=== PATIENT | male | born 1980 | race Caucasian/White ===

== ENCOUNTER 2023-11-23 19:17 | Emergency (ER) | payer OTHER ==
[2023-11-23 20:00] LABS: BASOPHILS ABSOLUTE AUTO 0.05 K/uL (0.00-0.20); BASOPHILS PERCENT AUTO 0.5 % (0.0-1.0); EOSINOPHILS ABSOLUTE AUTO 0.08 K/uL (0.00-0.45); EOSINOPHILS PERCENT AUTO 0.8 % (0.0-6.0); HEMATOCRIT 47.8 % (42.0-52.0); HEMOGLOBIN 17.1 g/dL (14.0-18.0); IMMATURE GRAN ABSOLUTE AUTO 0.02 K/uL (0.00-0.05); IMMATURE GRAN PERCENT AUTO 0.2 % (0.0-0.4); LYMPHOCYTES PERCENT AUTO 26.8 % (24.0-44.0); MEAN CORPUSCULAR HEMOGLOBIN 32.2 pg (28.0-32.0); MEAN CORPUSCULAR HGB CONC 35.8 g/dL (32.0-36.0); MEAN PLATELET VOLUME 11.4 fL (9.4-12.4); MONOCYTES ABSOLUTE AUTO 0.61 K/uL (0.00-0.80); NEUTROPHILS ABSOLUTE AUTO 6.63 K/uL (1.80-7.70); NEUTROPHILS PERCENT AUTO 65.7 % (41.0-71.0); PLATELET COUNT,PLT 228 K/uL (150-400); RED BLOOD CELL COUNT 5.31 M/uL (4.52-5.90); WHITE BLOOD CELL COUNT,WBC 10.09 K/uL (3.9-11.3)
[2023-11-23] MEDS: Pantoprazole 40 MG in Sodium Chloride 0.9% 10 ML IVPUSH ONE (20:01)
[2023-11-23] MEDS: Ondansetron 4 MG/2 ML SDV IVPUSH ONE (20:01)
[2023-11-23] MEDS: Alum Hydro/Mag Hydro/Simeth XS 15 ML, Lidocaine 2% 5 ML PO ONE (20:01)
[2023-11-23] MEDS: Sodium Chloride 0.9% 1,000 ML IV ONE (20:01)
[2023-11-23 20:31] LABS: ALANINE AMINOTRANSFERASE,ALT 39 IU/L (14-63); ALBUMIN 3.8 g/dL (3.4-5.0); ALKALINE PHOSPHATASE 87 U/L (46-116); ASPARTATE AMNIOTRANSFERASE,AST 25 IU/L (15-37); BILIRUBIN TOTAL 0.3 mg/dL (0.2-1.0); BLOOD UREA NITROGEN,BUN 12 mg/dL (7.0-18.0); CALCIUM 9.4 mg/dL (8.5-10.1); CARBON DIOXIDE,CO2 27.1 mmol/L (21.0-32.0); CHLORIDE,CL 102 mmol/L (98-107); EST CRCL DRUG DOSING (CG) 102.49 mL/min; GLUCOSE RANDOM 97 mg/dL (74-106); LIPASE 51 U/L (16-77); MAGNESIUM 2.2 mg/dL (1.8-2.4); POTASSIUM,K 4.5 mmol/L (3.5-5.1); PROTEIN TOTAL,TP 7.6 g/dL (6.4-8.2); SODIUM,NA 140 mmol/L (136-148)
[2023-11-23 20:39] LABS: ESTIMATED GFR 96 mL/min (>60)
== END 2023-11-23 21:01 | disposition home or self-care (01) ==
LOC: MW.ED 19:17
DX: K29.70 Gastritis, unspecified, without bleeding (principal); Z79.899 Other long term (current) drug therapy; Z75.8 Other problems related to medical facilities and other health care
CPT/HCPCS: 36415; 71045; 80053; 83690; 83735; 84484; 85025; 93005; 96361; 96374; 96375; 99285; A9270; C9113; J2405; J3490; J7030; 93010; 99284

== ENCOUNTER 2024-01-26 09:26 | Day surgery (SDC) | payer OTHER ==
[2024-01-26] MEDS: Lactated Ringers 1,000 ML IV SCH (09:50)
[2024-01-26] MEDS ORDERED: Propofol 200 MG/20 ML SDV ONE (10:42)
[2024-01-26] MEDS ORDERED: Lidocaine 2% 5 ML SDV ONE (10:42)
[2024-01-26] MEDS ORDERED: Lactated Ringers 1,000 ML IV SCH (11:15)
== END 2024-01-26 11:40 | disposition home or self-care (01) ==
LOC: MW.SDS 09:26
PROVIDERS: ATTEND Surgery
DX: K29.50 Unspecified chronic gastritis without bleeding (principal); K21.00 Gastro-esophageal reflux disease with esophagitis, without bleeding; J45.909 Unspecified asthma, uncomplicated; F41.9 Anxiety disorder, unspecified; F17.210 Nicotine dependence, cigarettes, uncomplicated
CPT/HCPCS: 43239; J2704; J7120; 00731; J3490

== ENCOUNTER 2024-04-01 10:34 | Emergency (ER) | payer OTHER ==
[2024-04-01] MEDS: Acetaminophen/HYDROcodone 325-5 MG Tab PO ONE (11:16)
== END 2024-04-01 11:41 | disposition home or self-care (01) ==
LOC: MW.ED 10:34
DX: G89.29 Other chronic pain (principal); M54.50 Low back pain, unspecified; J45.909 Unspecified asthma, uncomplicated; F17.210 Nicotine dependence, cigarettes, uncomplicated; Z88.8 Allergy status to other drugs, medicaments and biological substances; Z79.899 Other long term (current) drug therapy; Z75.8 Other problems related to medical facilities and other health care
CPT/HCPCS: 99283; A9270

== ENCOUNTER 2024-05-13 09:47 | Emergency (ER) | payer OTHER ==
[2024-05-13 10:34] LABS: BASOPHILS ABSOLUTE AUTO 0.06 K/uL (0.00-0.20); BASOPHILS PERCENT AUTO 0.7 % (0.0-1.0); EOSINOPHILS ABSOLUTE AUTO 0.02 K/uL (0.00-0.45); EOSINOPHILS PERCENT AUTO 0.2 % (0.0-6.0); HEMATOCRIT 46.3 % (42.0-52.0); HEMOGLOBIN 16.2 g/dL (14.0-18.0); IMMATURE GRAN ABSOLUTE AUTO 0.03 K/uL (0.00-0.05); IMMATURE GRAN PERCENT AUTO 0.4 % (0.0-0.4); LYMPHOCYTES ABSOLUTE AUTO 1.43 K/uL (1.00-4.80); LYMPHOCYTES PERCENT AUTO 16.8 % (24.0-44.0); MEAN CORPUSCULAR HEMOGLOBIN 32.1 pg (28.0-32.0); MEAN CORPUSCULAR VOLUME 91.7 fL (83.0-99.0); MONOCYTES ABSOLUTE AUTO 0.37 K/uL (0.00-0.80); MONOCYTES PERCENT AUTO 4.3 % (0.0-8.0); NEUTROPHILS PERCENT AUTO 77.6 % (41.0-71.0); PLATELET COUNT,PLT 224 K/uL (150-400); RED BLOOD CELL COUNT 5.05 M/uL (4.52-5.90); WHITE BLOOD CELL COUNT,WBC 8.51 K/uL (3.9-11.3)
[2024-05-13] MEDS: Ondansetron 4 MG/2 ML SDV IVPUSH STA (10:37)
[2024-05-13] MEDS: Pantoprazole 40 MG in Sodium Chloride 0.9% 10 ML IVPUSH STA (10:37)
[2024-05-13] MEDS: Sodium Chloride 0.9% 500 ML IV STA (10:37)
[2024-05-13] MEDS: Sodium Chloride 0.9% 10 ML Syringe FLUSH PRN (10:38)
[2024-05-13] MEDS: Sodium Chloride 0.9% 2.5 ML Syringe FLUSH PRN (10:38)
[2024-05-13 11:07] LABS: A/G RATIO 1.2 (0.9-1.6); ALANINE AMINOTRANSFERASE,ALT 33 IU/L (14-63); ALBUMIN 4.3 g/dL (3.4-5.0); ALKALINE PHOSPHATASE 77 U/L (46-116); ASPARTATE AMNIOTRANSFERASE,AST 24 IU/L (15-37); BILIRUBIN TOTAL 0.3 mg/dL (0.2-1.0); BLOOD UREA NITROGEN,BUN 9 mg/dL (7.0-18.0); CALCIUM 9.5 mg/dL (8.5-10.1); CHLORIDE,CL 102 mmol/L (98-107); EST CRCL DRUG DOSING (CG) 101.45 mL/min; GLUCOSE RANDOM 93 mg/dL (74-106); LIPASE 44 U/L (16-77); POTASSIUM,K 4.2 mmol/L (3.5-5.1); PROTEIN TOTAL,TP 7.9 g/dL (6.4-8.2); SODIUM,NA 140 mmol/L (136-148)
[2024-05-13 11:08] LABS: ESTIMATED GFR 96 mL/min (>60); ETHANOL BLOOD MEDICAL 3 mg/dL
== END 2024-05-13 12:21 | disposition home or self-care (01) ==
LOC: MW.ED 09:47
DX: A08.4 Viral intestinal infection, unspecified (principal); K21.9 Gastro-esophageal reflux disease without esophagitis; F17.210 Nicotine dependence, cigarettes, uncomplicated; Z79.899 Other long term (current) drug therapy; Z79.2 Long term (current) use of antibiotics; Z91.048 Other nonmedicinal substance allergy status; Z75.8 Other problems related to medical facilities and other health care
CPT/HCPCS: 36415; 80053; 80307; 83690; 84484; 85025; 93005; 96361; 96374; 96375; 99284; J2405; J2470; J3490; J7040; 93010

== ENCOUNTER 2024-07-27 14:29 | Emergency (ER) | payer BC, OTHER ==
[2024-07-27] MEDS: Lidocaine 4% 1 each Patch TOP STA (16:05)
[2024-07-27] MEDS: oxyCODONE 5 MG Tab PO STA (16:05)
== END 2024-07-27 17:55 | disposition home or self-care (01) ==
LOC: MW.ED 14:29
DX: M54.50 Low back pain, unspecified (principal); K21.9 Gastro-esophageal reflux disease without esophagitis; F17.210 Nicotine dependence, cigarettes, uncomplicated; Z79.899 Other long term (current) drug therapy; Z91.048 Other nonmedicinal substance allergy status; Z75.8 Other problems related to medical facilities and other health care; W00.9XXA Unspecified fall due to ice and snow, initial encounter
CPT/HCPCS: 72131; 99283; A9270

== ENCOUNTER 2024-10-13 20:45 | Emergency (ER) | payer SELFPAY ==
[2024-10-13 21:05] LABS: BASOPHILS ABSOLUTE AUTO 0.06 K/uL (0.00-0.20); BASOPHILS PERCENT AUTO 0.8 % (0.0-1.0); EOSINOPHILS ABSOLUTE AUTO 0.04 K/uL (0.00-0.45); EOSINOPHILS PERCENT AUTO 0.5 % (0.0-6.0); HEMATOCRIT 48.9 % (42.0-52.0); HEMOGLOBIN 17.1 g/dL (14.0-18.0); IMMATURE GRAN ABSOLUTE AUTO 0.02 K/uL (0.00-0.05); IMMATURE GRAN PERCENT AUTO 0.3 % (0.0-0.4); LYMPHOCYTES ABSOLUTE AUTO 2.23 K/uL (1.00-4.80); LYMPHOCYTES PERCENT AUTO 29.2 % (24.0-44.0); MEAN CORPUSCULAR HEMOGLOBIN 31.8 pg (28.0-32.0); MEAN CORPUSCULAR VOLUME 90.9 fL (83.0-99.0); MEAN PLATELET VOLUME 11.3 fL (9.4-12.4); MONOCYTES ABSOLUTE AUTO 0.45 K/uL (0.00-0.80); MONOCYTES PERCENT AUTO 5.9 % (0.0-8.0); NEUTROPHILS ABSOLUTE AUTO 4.84 K/uL (1.80-7.70); NEUTROPHILS PERCENT AUTO 63.3 % (41.0-71.0); PLATELET COUNT,PLT 260 K/uL (150-400); RED BLOOD CELL COUNT 5.38 M/uL (4.52-5.90); WHITE BLOOD CELL COUNT,WBC 7.64 K/uL (3.9-11.3)
[2024-10-13 21:45] LABS: A/G RATIO 1.1 (0.9-1.6); ALANINE AMINOTRANSFERASE,ALT 27 IU/L (14-63); ALBUMIN 3.9 g/dL (3.4-5.0); ALKALINE PHOSPHATASE 81 U/L (46-116); ASPARTATE AMNIOTRANSFERASE,AST 19 IU/L (15-37); BILIRUBIN TOTAL 0.6 mg/dL (0.2-1.0); BLOOD UREA NITROGEN,BUN 13 mg/dL (7.0-18.0); CALCIUM 9.3 mg/dL (8.5-10.1); CARBON DIOXIDE,CO2 28.1 mmol/L (21.0-32.0); CHLORIDE,CL 100 mmol/L (98-107); CREATININE 1.2 mg/dL (0.8-1.3); EST CRCL DRUG DOSING (CG) 79.37 mL/min; GLUCOSE RANDOM 98 mg/dL (74-106); MAGNESIUM 1.9 mg/dL (1.8-2.4); POTASSIUM,K 4.4 mmol/L (3.5-5.1); PRO B-TYPE NATRIUR PEPT,BNPPRO 12 pg/mL (0-125); PROTEIN TOTAL,TP 7.6 g/dL (6.4-8.2); SODIUM,NA 136 mmol/L (136-148)
[2024-10-13 21:51] LABS: ESTIMATED GFR 77 mL/min (>60)
== END 2024-10-13 23:34 | disposition home or self-care (01) ==
LOC: MW.ED 20:45
DX: R05.9 Cough, unspecified (principal); K21.9 Gastro-esophageal reflux disease without esophagitis; Z79.899 Other long term (current) drug therapy; Z88.8 Allergy status to other drugs, medicaments and biological substances
CPT/HCPCS: 36415; 71045; 71045-26; 80053; 83735; 83880; 84484; 85025; 87428-QW; 93005; 93010; 99283; 99285

== ENCOUNTER 2024-10-20 20:45 | Emergency (ER) | payer SELFPAY ==
[2024-10-20] MEDS: Alum Hydrox/Mag Hydrox/Simeth 15 ML, Lidocaine 2% 5 ML PO ONE (23:21)
== END 2024-10-21 02:00 | disposition home or self-care (01) ==
LOC: MW.ED 20:45
DX: J02.8 Acute pharyngitis due to other specified organisms (principal); J45.909 Unspecified asthma, uncomplicated; F17.210 Nicotine dependence, cigarettes, uncomplicated; Z91.048 Other nonmedicinal substance allergy status; Z79.899 Other long term (current) drug therapy; Z75.3 Unavailability and inaccessibility of health-care facilities
CPT/HCPCS: 87651; 93005; 96374; 99284; A9270; J1100; 93010

== ENCOUNTER 2024-11-16 21:12 | Emergency (ER) | payer SELFPAY ==
[2024-11-17] MEDS: predniSONE 20 MG Tab PO ONE (00:08)
== END 2024-11-17 00:19 | disposition home or self-care (01) ==
LOC: MW.ED 21:12
DX: J40 Bronchitis, not specified as acute or chronic (principal); J06.9 Acute upper respiratory infection, unspecified; B97.89 Other viral agents as the cause of diseases classified elsewhere; J45.909 Unspecified asthma, uncomplicated; Z91.048 Other nonmedicinal substance allergy status
CPT/HCPCS: 71046; 87428; 87651; 99284; A9270; 99283

== ENCOUNTER 2025-01-15 19:24 | Emergency (ER) | payer BC, OTHER ==
[2025-01-15] MEDS: Ketorolac 30 MG/ML SDV IM ONE (20:58)
[2025-01-15] MEDS: Cyclobenzaprine 10 MG Tab PO ONE (20:59)
== END 2025-01-15 21:56 | disposition home or self-care (01) ==
LOC: MW.ED 19:24
DX: M54.42 Lumbago with sciatica, left side (principal); Z91.09 Other allergy status, other than to drugs and biological substances; Z79.899 Other long term (current) drug therapy
CPT/HCPCS: 96372; 99283; A9270; J1100; J1885

== ENCOUNTER 2025-02-01 21:58 | Emergency (ER) | payer BC ==
[2025-02-01] MEDS ORDERED: Ketorolac 30 MG/ML SDV IVPUSH ONE (22:25)
[2025-02-01] MEDS: Ketorolac 30 MG/ML SDV IM ONE (22:37)
== END 2025-02-01 22:39 | disposition home or self-care (01) ==
LOC: MW.ED 21:58
DX: G89.29 Other chronic pain (principal); M54.50 Low back pain, unspecified; F17.200 Nicotine dependence, unspecified, uncomplicated; Z88.8 Allergy status to other drugs, medicaments and biological substances; Z79.899 Other long term (current) drug therapy
CPT/HCPCS: 96372; 99283; J1885

== ENCOUNTER 2025-02-13 22:51 | Emergency (ER) | payer BC ==
[2025-02-13] MEDS: Ketorolac 30 MG/ML SDV IM ONE (23:11)
== END 2025-02-13 23:19 | disposition home or self-care (01) ==
LOC: MW.ED 22:51
DX: M54.50 Low back pain, unspecified (principal); Z88.0 Allergy status to penicillin
CPT/HCPCS: 96372; 99283; J1885

== ENCOUNTER 2025-04-22 06:16 | Day surgery (SDC) | payer BC ==
[2025-04-22] MEDS: Lactated Ringers 1,000 ML IV SCH (06:50)
[2025-04-22] MEDS ORDERED: Naloxone 0.4 MG/ML SDV IVPUSH PRN (06:57)
[2025-04-22] MEDS ORDERED: fentaNYL 50 MCG/ML SDV IVPUSH PRN (06:57)
[2025-04-22] MEDS ORDERED: Ondansetron 4 MG/2 ML SDV IVPUSH PRN (06:57)
[2025-04-22] MEDS ORDERED: Albuterol 0.083% 2.5 MG/3 ML Neb Soln NEB PRN (06:57)
[2025-04-22] MEDS ORDERED: Propofol 200 MG/20 ML SDV ONE (07:23)
[2025-04-22] MEDS ORDERED: Midazolam 1 MG/ML 2 ML SDV ONE (07:23)
[2025-04-22] MEDS ORDERED: fentaNYL 100 MCG/2 ML SDV ONE (07:23)
[2025-04-22] MEDS ORDERED: Ketorolac 30 MG/ML SDV ONE (08:11)
[2025-04-22] MEDS ORDERED: Dexamethasone 4 MG/ML 5 ML MDV ONE (08:11)
[2025-04-22] MEDS ORDERED: Ondansetron 4 MG/2 ML SDV ONE (08:11)
[2025-04-22] MEDS ORDERED: Acetaminophen/HYDROcodone 325-5 MG Tab PO PRN (09:00)
[2025-04-22] MEDS ORDERED: Lactated Ringers 1,000 ML IV SCH (09:00)
== END 2025-04-22 10:00 | disposition home or self-care (01) ==
LOC: MW.SDS 06:16
PROVIDERS: ATTEND Surgery
DX: D17.1 Benign lipomatous neoplasm of skin and subcutaneous tissue of trunk (principal); E66.9 Obesity, unspecified; F17.210 Nicotine dependence, cigarettes, uncomplicated; Z91.09 Other allergy status, other than to drugs and biological substances; Z68.29 Body mass index [BMI] 29.0-29.9, adult; Z79.899 Other long term (current) drug therapy
CPT/HCPCS: 22903; J0665; J1100; J1885; J2003; J2250; J2405; J2704; J3010; J7120; 00800